=== PATIENT | male | born 1945 | race Caucasian/White ===

== ENCOUNTER → 2017-05-13 | Outpatient (CLI) | payer MEDICARE, OTHER ==
[~2017-05-13] MED LIST: CALCIUM 600MG+D1 TAB PO; DOXYCYCLINE 10100 MG PO; EPA FISH OIL1 SGL PO; HALCION0.25 MG PO; NATURAL E400 IU PO; PRILOTC PO; VITAMIN C500 MG PO; VITAMIN D 400400 IU PO; ZOCOR 20MG20 MG PO
== END ==
LOC: COL.VAS 12:36
DX: I83.813 Varicose veins of bilateral lower extremities with pain (principal)

== ENCOUNTER 2017-06-08 06:58 | Outpatient (CLI) | payer MEDICARE, OTHER ==
[~2017-06-08] VITALS: Ht 185.4 cm; Wt 84.0 kg
[2017-06-08] VITALS (8 sets, daily range): BP systolic 100–127; BP diastolic 63–100; PULSE 47–62; TEMP 98.8
[2017-06-08] MEDS ORDERED: PRILOTC PO (07:19)
[2017-06-08] MEDS ORDERED: HALCION0.25 MG PO (07:20)
[2017-06-08] MEDS ORDERED: ZOCOR 20MG20 MG PO (07:21)
[2017-06-08] MEDS ORDERED: VITAMIN C500 MG PO (07:22)
[2017-06-08] MEDS ORDERED: EPA FISH OIL1 SGL PO (07:22)
[2017-06-08] MEDS ORDERED: VITAMIN D 400400 IU PO (07:23)
[2017-06-08] MEDS ORDERED: NATURAL E400 IU PO (07:23)
[2017-06-08] MEDS ORDERED: CALCIUM 600MG+D1 TAB PO (07:24)
[2017-06-08] MEDS ORDERED: DOXYCYCLINE 10100 MG PO (13:55)
== END 2017-06-08 14:15 | disposition home or self-care (01) ==
LOC: COL.VAS 06:58
DX: I83.92 Asymptomatic varicose veins of left lower extremity (principal)
CPT/HCPCS: C1769; C1894; J0171; J2250; J3010; J3370; J7040; J7050; J7120

== ENCOUNTER → 2017-06-15 | Outpatient (CLI) | payer MEDICARE, OTHER | LOC: COL.VAS 09:46 | DX: Z09 Encounter for follow-up examination after completed treatment for conditions other than malignant neoplasm (principal); I82.890 Acute embolism and thrombosis of other specified veins ==

== ENCOUNTER 2017-07-11 08:02 | Outpatient (CLI) | payer MEDICARE, OTHER ==
[2017-07-11] VITALS (19 sets, daily range): BP systolic 113–136; BP diastolic 71–93; PULSE 51–59; TEMP 98
[~2017-07-11] VITALS: Ht 185.4 cm; Wt 83.3 kg
[2017-07-11] MEDS ORDERED: CALCIUM CARBON650 M2 PO (09:18)
[2017-07-11] MEDS ORDERED: DOXYCYCLINE HY100 MG PO (12:01)
== END 2017-07-11 14:00 | disposition home or self-care (01) ==
LOC: COL.VAS 08:02
DX: I83.813 Varicose veins of bilateral lower extremities with pain (principal); Z90.49 Acquired absence of other specified parts of digestive tract
CPT/HCPCS: C1769; C1894; J0171; J2250; J3010; J3370; J7050; J7120

== ENCOUNTER 2018-02-16 20:50 | Emergency (ER) | payer MEDICARE, OTHER ==
[~2018-02-16] VITALS: Ht 185.4 cm; Wt 84.1 kg
[~2018-02-16 20:50] MED LIST changes: +CALCIUM CARBON650 M2 PO; +DOXYCYCLINE HY100 MG PO
[2018-02-16 20:52] VITALS: BP 141/94; TEMP 99.1
[2018-02-16 22:14] VITALS: PULSE 73
== END 2018-02-16 22:15 | disposition home or self-care (01) ==
LOC: COL.ER 20:50
DX: T18.128A Food in esophagus causing other injury, initial encounter (principal); E78.5 Hyperlipidemia, unspecified; Z90.49 Acquired absence of other specified parts of digestive tract